=== PATIENT | male | born 1985 | race African-American/Black ===

== ENCOUNTER 2020-03-07 23:14 | Emergency (ER) | payer MEDICAID, OTHER ==
[~2020-03-07] VITALS: Ht 175.3 cm; Wt 56.7 kg
--- NOTE | 2020-03-07 23:20 | NUR ---
PT BIBRA FROM STREET C/O RUNNING IN AND OUT OF STREET S/P DRUG USE. PT DENIES SI/HI AT THIS TIME. PT RESTING IN BED, DOZING INTERMITTENTLY. VITAL SIGNS STABLE. NO ACUTE DISTRESS NOTED AT THIS TIME. PLACED ON MONITOR, WILL CONTINUE TO MONITOR
--- NOTE | 2020-03-07 23:22 | NUR ---
CALLED SECURITY FOR WANDING.
[2020-03-07] MEDS ORDERED: OLANZAPINE 10 MG VIAL IM ONE ×2 (23:30→23:45)
[2020-03-07 23:42] LABS: BASOPHILS % (AUTO) 0.3 % (0.0-2.0); EOSINOPHILS % (AUTO) 0.2 % (0.0-6.0); HEMATOCRIT 43 % (39-51); HEMOGLOBIN 14.2 g/dL (13.5-17.5); LYMPHOCYTES # (AUTO) 0.6 /CMM (0.8-4.8); LYMPHOCYTES % (AUTO) 6.9 % (20.0-44.0); MEAN CORPUSCULAR HGB CONC 33 g/dl (31.0-36.0); MEAN CORPUSCULAR VOLUME 91 fL (80-96); MONOCYTES # (AUTO) 0.9 /CMM (0.1-1.30); MONOCYTES % (AUTO) 9.7 % (2.0-12.0); NEUTROPHILS # (AUTO) 7.6 /CMM (1.8-8.9); NEUTROPHILS % (AUTO) 82.9 % (43.0-81.0); PLATELET COUNT (AUTO) 208 /CMM (150-450); RED BLOOD CELL COUNT(AUTO) 4.77 MIL/uL (4.5-6.0); WHITE BLOOD COUNT (AUTO) 9.2 K/uL (4.3-11.0)
[2020-03-07 23:59] LABS: CALCIUM, SERUM 9.7 mg/dL (8.5-10.1); CARBON DIOXIDE 25 mmol/L (21-32); CHLORIDE 103 mmol/L (98-107); CREATININE 1.4 mg/dL (0.6-1.3); GLUCOSE 103 mg/dL (74-106); POTASSIUM 3.7 mmol/L (3.5-5.1); SODIUM SERUM 140 mmol/L (136-145); UREA NITROGEN, BLOOD 21 mg/dL (7-18)
[2020-03-08 00:05] LABS: ALANINE AMINOTRANSFERASE 47 U/L (12-78); ALBUMIN 4.4 g/dL (3.4-5.0); ALCOHOL, BLOOD < 3 mg/dL (0-0); ALKALINE PHOSPHATASE 98 U/L (46-116); ASPARTATE AMINOTRANSFERASE 48 U/L (15-37); BILIRUBIN,DIRECT 0.2 mg/dL (0.0-0.2); BILIRUBIN,TOTAL 0.6 mg/dL (0.2-1.0); TOTAL PROTEIN, SERUM 8.7 g/dL (6.4-8.2)
[2020-03-08 00:06] LABS: ACETAMINOPHEN < 2 ug/ml (10-30)
[2020-03-08 01:27] LABS: BILIRUBIN,URINE NEGATIVE (NEGATIVE); BLOOD, URINE MODERATE Ery/uL (NEGATIVE); COLOR,URINE YELLOW (YELLOW); KETONES,URINE 15 (NEGATIVE); LEUKOCYTE ESTERASE ,URINE TRACE (NEGATIVE); NITRITE, URINE POSITIVE (NEGATIVE); PROTEIN,URINE 100 mg/dl (NEGATIVE); UGLUCOSE NEGATIVE (NEGATIVE); UROBILINOGEN,URINE 0.2 EU/dL (0.2)
[2020-03-08 01:46] LABS: APPEARANCE,URINE HAZY (CLEAR)
[2020-03-08 01:53] LABS: BACTERIA,URINE Many /HPF (None Seen); SQUAMOUS EPITHELIAL CELL,UR Few /HPF (None Seen)
[2020-03-08 01:54] LABS: URINE AMORPHOUS URATE Few /HPF (None Seen)
[2020-03-08] MEDS ORDERED: CEFTRIAXONE 1 G VIAL IM ONE (05:00)
[2020-03-08] MEDS ORDERED: LIDOCAINE /MPF 1% VIAL 5 ML VIAL ONE (05:28)
[2020-03-08] MEDS ORDERED: CEFTRIAXONE 1 G VIAL ONE (05:28)
--- NOTE | 2020-03-08 05:30 | NUR ---
PT [id number]. AMBULATORY WITH STEADY GAIT. DENIES SI/HI AT THIS TIME. AWARE
--- NOTE | 2020-03-08 05:40 | NUR ---
Patient discharged to home in stable condition. Written and verbal after care instructions given. Patient verbalizes understanding of instruction.Pt ambulatory with a steady gait
[2020-03-08 06:15] VITALS: BP 118/60
== END 2020-03-08 06:15 | disposition home or self-care (01) ==
LOC: ER 23:16
DX: F15.10 Other stimulant abuse, uncomplicated (principal); N39.0 Urinary tract infection, site not specified
CPT/HCPCS: 36415; 80048; 80076; 80299; 80307 ×2; 80320; 81001; 85025; 93005; 96372 ×2; 99284; J0696; J3490 ×2; 81000-TC; G0480

== ENCOUNTER 2023-09-27 12:17 | Emergency (ER) | payer MEDICAID, OTHER ==
[~2023-09-27] VITALS: Ht 185.4 cm; Wt 63.5 kg
[2023-09-27 13:38] VITALS: BP 155/89; TEMP 98.2; O2SAT 99
== END 2023-09-27 13:42 ==
LOC: ER 12:24
DX: Z76.5 Malingerer [conscious simulation] (principal)